=== PATIENT | female | born 1995 | race Caucasian/White ===

== ENCOUNTER 2017-04-10 19:42 | Emergency (ER) | payer BC ==
--- NOTE | 2017-04-10 19:46 | PDOC ---
History of Present Illness - General History Source: Patient Exam Limitations: No Limitations - History of Present Illness Initial Comments: 04/10/17 20:11 The patient is a 21-year-old female, with no significant past medical history, who presents to the ED with a laceration to her right thumb as she was trying to open a can of green beans. She rates the pain a 4/10 in severity. Last tetanus shot was over 5 years ago. She denies having any other injuries or symptoms. PAST MEDICAL HISTORY: no significant history PAST SURGICAL HISTORY: no significant history FAMILY HISTORY: no pertinent history HISTORY: Pt lives with family and is employed. MEDICATIONS: reviewed ALLERGIES: As per nursing notes Adult ROS General: No fevers or chills, no weakness, no weight loss HEENT: No change in vision. No sore throat,. No ear pain CardioVascular: No chest pain or shortness of breath Respiratory:No cough, or wheezing. Gastrointestinal: no nausea, vomiting, diarrhea or constipation, No rectal bleeding Genitourinary: No dysuria, hematuria, or frequency Musculoskeletal: No joint or muscle pain or swelling Neurologic: No headache, vertigo, dizziness or loss of consciousness Psychiatric: nor depression Skin: +laceration to right thumb. Endocrine: no increased thirst or abnormal weight change Allergic: no skin or latex allergy All other systems reviewed and normal Basic PE GENERAL: The patient is awake, alert, and fully oriented, in no acute distress. HEAD: Normal with no signs of trauma. EYES: Pupils equal, round and reactive to light, extraocular movements intact, sclera anicteric, conjunctiva clear. EXTREMITIES: Normal range of motion, no edema. NEUROLOGICAL: Normal speech, normal gait. PSYCH: Normal mood, normal affect. SKIN: (+)Approximately 2 cm laceration to the palmar surface extending medially into the nail bed about 2 mm. No active bleeding. Slight decrease in sensation distally. Full range of motion. Warm, Dry, normal turgor. <Yoalnda Nunez - Last Filed: 04/10/17 20:11> - General History Source: Patient Exam Limitations: No Limitations - History of Present Illness Initial Comments: 04/10/17 20:56 Procedure note laceration was anesthetized via digital block and the irrigated with normal saline. Laceration was closed with a total of 6 sutures of 5-0 Ethilon Bacitracin and sterile dressing was applied patient tolerated well. <Gamaliel Zepeda I - Last Filed: 04/10/17 20:57> - General Chief Complaint: Laceration Stated Complaint: CUT RIGHT THUMB ON A CAN Time Seen by Provider: 04/10/17 19:45 Past History <Yolanda Nunez - Last Filed: 04/10/17 20:11> - Suicide/Smoking/Psychosocial Hx Smoking History: Never smoked Hx Alcohol Use: No Drug/Substance Use Hx: No Substance Use Type: None <Gamaliel Zepeda I - Last Filed: 04/10/17 20:57> - Past Medical History Allergies/Adverse Reactions: Allergies Allergy/AdvReac Type Severity Reaction Status Date / Time No Known Allergies Allergy Verified 04/10/17 19:43 Review of Systems - Review of Systems Able to Perform ROS?: Yes <Yolnada Nunez - Last Filed: 04/10/17 20:11> *Physical Exam - Vital Signs Last Vital Signs Temp Pulse Resp BP Pulse Ox 98.3 F 130 H 20 165/102 100 04/10/17 19:43 04/10/17 19:43 04/10/17 19:43 04/10/17 19:43 04/10/17 19:43 <Yolanda Nunez - Last Filed: 04/10/17 20:11> *DC/Admit/Observation/Transfer - Attestations Scribe Attestion: 04/10/17 20:13 Documentation prepared by Yolanda Nunez, acting as medical billing coordinator for Gamaliel Zepeda MD. <Yolanda Nunez - Last Filed: 04/10/17 20:11> - Discharge Dispostion Admit: No <Gamaliel Zepeda I - Last Filed: 04/10/17 20:57> Diagnosis at time of Disposition: Laceration of right thumb Qualifiers: Encounter type: initial encounter Damage to nail status: with damage Foreign body presence: without foreign body Qualified Code(s): S61.111A - Laceration without foreign body of right thumb with damage to nail, initial encounter - Discharge Dispostion Disposition: HOME Condition at time of disposition: Stable - Patient Instructions Printed Discharge Instructions: DI for Laceration Repair Additional Instructions: Return in 7-10 days for suture removal Remove the dressing on morning cleaned with some peroxide and reapply some bacitracin and a Band-Aid. Keep it covered with a large Band-Aid while at work to keep it clean Return to the emergency department immediately with ANY new, persistent or worsening symptoms. Continue any medications as previously prescribed by your physician. You should follow up with your primary doctor as soon as possible regarding today's emergency department visit. . Please make sure your doctor reviews the results of your emergency evaluation. Thank you for coming to the Emergency Department today for your care. It was a pleasure to see you today. Please note that your evaluation is INCOMPLETE until you follow-up with your doctor.
[2017-04-10 20:06] VITALS: TEMP 98.3; BMI 37.1
[2017-04-10 21:05] VITALS: BP 142/93; PULSE 110
--- NOTE | 2017-04-10 21:09 | PDOC ---
*Physical Exam - Vital Signs Last Vital Signs Temp Pulse Resp BP Pulse Ox 98.3 F 110 H 20 142/93 100 04/10/17 19:43 04/10/17 21:04 04/10/17 21:04 04/10/17 21:04 04/10/17 19:43 Progress Note - Progress Note Progress Note: Post my completion the chart for discharge it was noted the patient's heart rate was still approximately 110 but regular rate and rythym and 1 is 1:30 when she came in. I had a discussion with the patient regarding her heart rate. Patient is unaware that she has an elevated heart rate. Patient said she had a complete battery of tests done and including thyroid studies approximate 2 years ago. Patient denied any use of [id number] medications such as cough or cold medications decongestants or any stimulants. Patient denied any street drugs such as cocaine or amphetamines. Patient was instructed to take her heart rate 1 is home and relaxed and he gets several more times over the next day or so. If her heart rate is consistently over 100 she should call her doctor get an appointment to follow-up and have her thyroid retested and her heart rate evaluated. *DC/Admit/Observation/Transfer Diagnosis at time of Disposition: Laceration of right thumb Qualifiers: Encounter type: initial encounter Damage to nail status: with damage Foreign body presence: without foreign body Qualified Code(s): S61.111A - Laceration without foreign body of right thumb with damage to nail, initial encounter - Discharge Dispostion Disposition: HOME Condition at time of disposition: Stable - Referrals - Patient Instructions Printed Discharge Instructions: DI for Laceration Repair Additional Instructions: Return in 7-10 days for suture removal Remove the dressing on morning cleaned with some peroxide and reapply some bacitracin and a Band-Aid. Keep it covered with a large Band-Aid while at work to keep it clean Return to the emergency department immediately with ANY new, persistent or worsening symptoms. Continue any medications as previously prescribed by your physician. You should follow up with your primary doctor as soon as possible regarding today's emergency department visit. . Please make sure your doctor reviews the results of your emergency evaluation. Thank you for coming to the Emergency Department today for your care. It was a pleasure to see you today. Please note that your evaluation is INCOMPLETE until you follow-up with your doctor. - Post Discharge Activity
== END 2017-04-10 21:17 | disposition home or self-care (01) ==
LOC: FER 19:42
PROC: 0HQFXZZ Repair Right Hand Skin, External Approach (ICD-10-PCS; principal; 2017-04-10)
DX: S61.111A Laceration without foreign body of right thumb with damage to nail, initial encounter (principal); W26.8XXA Contact with other sharp object(s), not elsewhere classified, initial encounter; Y93.G1 Activity, food preparation and clean up; Y92.000 Kitchen of unspecified non-institutional (private) residence as the place of occurrence of the external cause
CPT/HCPCS: 99282-25